=== PATIENT | male | born 1995 ===

== ENCOUNTER 2017-11-23 12:22 | Outpatient (CLI) | payer OTHER | END 2017-11-23 12:34 | disposition home or self-care (01) | LOC: RAD 12:22 | DX: N20.0 Calculus of kidney (principal); N21.0 Calculus in bladder ==

== ENCOUNTER 2019-06-07 08:09 | Outpatient (CLI) | payer OTHER | END 2019-06-07 08:20 | disposition home or self-care (01) | LOC: RX STUDY 08:09 | DX: N99.112 Postprocedural membranous urethral stricture, male (principal) ==